=== PATIENT | male | born 1985 | race Caucasian/White ===

== ENCOUNTER 2022-10-29 21:00 | Emergency (ER) | payer SELFPAY | END 2022-10-29 21:55 | disposition home or self-care (01) | LOC: MW.ED 21:00 | DX: T40.2X1A Poisoning by other opioids, accidental (unintentional), initial encounter (principal); F41.9 Anxiety disorder, unspecified | CPT/HCPCS: 99283 ==

== ENCOUNTER 2024-11-24 22:33 | Emergency (ER) | payer SELFPAY ==
[2024-11-24] MEDS: Ketorolac 30 MG/ML SDV IM ONE (22:52)
[2024-11-24 23:05] LABS: APPEARANCE,URINE CLEAR; GLUCOSE,URINE NEGATIVE (NEGATIVE); OCCULT BLOOD,URINE NEGATIVE (NEGATIVE)
== END 2024-11-25 01:47 | disposition home or self-care (01) ==
LOC: MW.ED 22:33
DX: N45.1 Epididymitis (principal); N50.811 Right testicular pain; Z88.0 Allergy status to penicillin
CPT/HCPCS: 76870; 81003; 93976; 96372; 99284; A9270; J1885; 99283